=== PATIENT | male | born 1965 | race Caucasian/White ===

== ENCOUNTER 2020-09-28 13:01 | Emergency (ER) | payer OTHER ==
[~2020-09-28] VITALS: Ht 175.3 cm; Wt 77.1 kg
[~2020-09-28 13:01] MED LIST: DICLO GEL1 EACH
== END 2020-09-28 18:12 | disposition left against medical advice (07) ==
LOC: ER 13:01
DX: R03.1 Nonspecific low blood-pressure reading (principal); Z53.21 Procedure and treatment not carried out due to patient leaving prior to being seen by health care provider
CPT/HCPCS: 99282

== ENCOUNTER 2021-12-04 11:33 | Day surgery (SDC) | payer OTHER ==
[~2021-12-04] VITALS: Ht 175.3 cm; Wt 89.3 kg
[2021-12-04] MEDS ORDERED: LISI5 PO (11:59)
--- NOTE | 2021-12-04 12:47 | NUR ---
12/04/21 1247 JOSIE LEY 5MLS OF LIDOCAINE 2% WITH EPI 1:100,000 MIXED WITH 5MLS OF INJECTABLE NS TO CREATE A LOCAL SOLUTION OF LIDOCAINE 1% WITH EPI 1:200,000. 5MLS INJECTED BY AT START OF CASE.
--- NOTE | 2021-12-04 14:38 | NUR ---
12/04/21 1438 Tori Turner PT. DENIES PAIN OR NAUSEA. PT. EATING COOKIES & DRINKING WATER. Farhad.S. PT. VERBALIZES READY TO GO HOME.
== END 2021-12-04 14:49 | disposition home or self-care (01) ==
LOC: ORSCSDS 11:33
PROVIDERS: Otolaryngology
PROC: 09TL7ZZ Resection of Nasal Turbinate, Via Natural or Artificial Opening (ICD-10-PCS; principal; 2021-12-04 13:30)
PROC: 09BM0ZZ Excision of Nasal Septum, Open Approach (ICD-10-PCS; principal; 2021-12-04 13:30)
DX: J34.2 Deviated nasal septum (principal); J34.3 Hypertrophy of nasal turbinates; G47.33 Obstructive sleep apnea (adult) (pediatric); I10 Essential (primary) hypertension; Z79.899 Other long term (current) drug therapy
CPT/HCPCS: J0171; J1100; J2250; J2370; J2405; J2704; J2710; J3010; J7120